=== PATIENT | female | born 1975 | race Caucasian/White ===

== ENCOUNTER → 2017-03-27 | Outpatient (CLI) | payer OTHER | END | disposition home or self-care (01) | LOC: M.RAD 03-13 09:57 | DX: S73.191A Other sprain of right hip, initial encounter (principal); X58.XXXA Exposure to other specified factors, initial encounter; Y93.89 Activity, other specified; Y92.89 Other specified places as the place of occurrence of the external cause; Y99.8 Other external cause status ==

== ENCOUNTER → 2017-04-15 | Outpatient (CLI) | payer OTHER | LOC: M.RAD 08:52 | DX: M25.551 Pain in right hip (principal) ==

== ENCOUNTER → 2017-06-05 | Outpatient (CLI) | payer OTHER | LOC: M.RAD 10:51 | DX: Z12.31 Encounter for screening mammogram for malignant neoplasm of breast (principal) ==

== ENCOUNTER → 2017-10-14 | Outpatient (CLI) | payer OTHER | END | disposition home or self-care (01) | LOC: M.RAD 09:47 | DX: M25.551 Pain in right hip (principal) ==